=== PATIENT | female | born 1980 | race American Indian/Alaskan Native ===

== ENCOUNTER 2018-05-22 10:13 | Outpatient (CLI) | payer OTHER | END 2018-05-22 10:48 | disposition home or self-care (01) | LOC: NST 10:13 | DX: Z34.82 Encounter for supervision of other normal pregnancy, second trimester (principal) ==

== ENCOUNTER → 2018-07-27 06:24 | Outpatient (CLI) | payer OTHER | END | disposition home or self-care (01) | LOC: LAB 06:24 | DX: Z34.83 Encounter for supervision of other normal pregnancy, third trimester (principal) ==

== ENCOUNTER → 2018-07-29 | Outpatient (CLI) | payer OTHER | END | disposition home or self-care (01) | LOC: SONOGRAMA 08:06 → MAMO-SONO 08:15 | DX: R10.2 Pelvic and perineal pain (principal) ==

== ENCOUNTER 2018-09-05 14:26 | Outpatient (CLI) | payer OTHER | END 2018-09-05 16:17 | disposition home or self-care (01) | LOC: NST 14:26 | DX: Z34.83 Encounter for supervision of other normal pregnancy, third trimester (principal) ==

== ENCOUNTER 2018-09-09 05:58 | Inpatient (IN) | payer OTHER ==
[~2018-09-09] VITALS: Ht 160 cm; Wt 98.9 kg
[2018-09-09] MEDS ORDERED: OBSTETRIX EC C1 EACH PO (08:06)
[2018-09-09] MEDS ORDERED: VALTREX1000 MG PO (08:12)
== END 2018-09-12 13:57 | disposition home or self-care (01) | DRG 766 ==
LOC: OB/GYN 05:58 → LDR 05:58 → OB/GYN 18:00
PROVIDERS: Obstetrics & Gynecology Maternal & Fetal Medicine
PROC: 4A1HXCZ Monitoring of Products of Conception, Cardiac Rate, External Approach (ICD-10-PCS; 2018-09-09)
PROC: 4A033R1 Measurement of Arterial Saturation, Peripheral, Percutaneous Approach (ICD-10-PCS; 2018-09-09)
PROC: 10D00Z1 Extraction of Products of Conception, Low, Open Approach (ICD-10-PCS; principal; 2018-09-09 16:00)
DX: O33.8 Maternal care for disproportion of other origin (principal); O62.1 Secondary uterine inertia; O42.02 Full-term premature rupture of membranes, onset of labor within 24 hours of rupture; Z3A.37 37 weeks gestation of pregnancy; Z37.0 Single live birth; Z22.330 Carrier of Group B streptococcus